=== PATIENT | male | born 1970 | race Caucasian/White ===

== ENCOUNTER 2022-01-30 13:15 | Outpatient (CLI) | payer BC, SELFPAY | END 2022-01-30 13:16 | disposition home or self-care (01) | PROVIDERS: PCP Family Medicine; Visit Provider Family Medicine | DX: Z00.00 Encounter for general adult medical examination without abnormal findings (principal); I49.9 Cardiac arrhythmia, unspecified; R60.9 Edema, unspecified; L57.8 Other skin changes due to chronic exposure to nonionizing radiation; R06.83 Snoring; F41.9 Anxiety disorder, unspecified | CPT/HCPCS: 80076; 84443 ==

== ENCOUNTER 2022-02-06 09:11 | Outpatient (CLI) | payer BC, SELFPAY | END 2022-02-06 09:12 | disposition home or self-care (01) | LOC: RAD 09:11 | PROVIDERS: PCP Family Medicine; Visit Provider Family Medicine | DX: I49.9 Cardiac arrhythmia, unspecified (principal); Z86.79 Personal history of other diseases of the circulatory system | CPT/HCPCS: 93306 ==

== ENCOUNTER 2022-03-11 19:36 | Outpatient (CLI) | payer BC, SELFPAY ==
--- NOTE | 2022-03-24 12:00 | W.PM.SLEEP ---
Sleep Study Details Details Interpreting Provider: Nadir Gaitan MD Date of Sleep Study: 04/11/22 Sleep Study Details: STUDY TYPE:? Home ? BMI:? 29.3 ORDERING PROVIDER:? Katie INDICATION:? Concerns about sleep apnea ? SLEEP SUMMARY:? Monitor time 460.4 minutes RESPIRATORY SUMMARY:? AHI overall 6.1, supine 9.1, left lateral 2.0, right lateral 4.7. Line oxygen saturation low was 89%, snore summary 9.9 PERIODIC LIMB MOVEMENTS OF SLEEP:? Not recorded CARDIAC:? 53-91, 63.4 beats per minute average IMPRESSION:? This study demonstrates mild obstructive sleep apnea with supine position dependency. Treatment options include CPAP auto set 4-17 versus a dental appliance. RECOMMENDATION: See above impression
== END 2022-03-11 19:37 | disposition home or self-care (01) ==
LOC: SLEEP 19:37
PROVIDERS: PCP Family Medicine; Visit Provider Family Medicine
DX: G47.33 Obstructive sleep apnea (adult) (pediatric) (principal)
CPT/HCPCS: 95806

== ENCOUNTER 2023-04-13 08:10 | Outpatient (CLI) | payer BC, SELFPAY | END 2023-04-13 08:11 | disposition home or self-care (01) | LOC: NFLDREF 04-14 07:59 | PROVIDERS: PCP Family Medicine; Referring Provider Family Medicine; Visit Provider Family Medicine | DX: Z00.00 Encounter for general adult medical examination without abnormal findings (principal); I10 Essential (primary) hypertension; Z12.5 Encounter for screening for malignant neoplasm of prostate; Z13.1 Encounter for screening for diabetes mellitus; Z13.6 Encounter for screening for cardiovascular disorders | CPT/HCPCS: 80048; 80061; 84153 ==

== ENCOUNTER 2024-08-08 08:45 | Outpatient (CLI) | payer BC, SELFPAY | END 2024-08-08 08:46 | disposition home or self-care (01) | PROVIDERS: PCP Family Medicine; Visit Provider Family Medicine | DX: I10 Essential (primary) hypertension (principal); Z13.220 Encounter for screening for lipoid disorders; Z12.5 Encounter for screening for malignant neoplasm of prostate; Z13.29 Encounter for screening for other suspected endocrine disorder | CPT/HCPCS: 80048; 80061; 84270; 84402; 84403; G0103 ==

== ENCOUNTER 2024-08-23 08:49 | Outpatient (CLI) | payer BC, SELFPAY | END 2024-08-23 08:50 | disposition home or self-care (01) | LOC: RAD 08:50 | PROVIDERS: PCP Family Medicine; Visit Provider Family Medicine | DX: I71.20 Thoracic aortic aneurysm, without rupture, unspecified (principal) | CPT/HCPCS: 93306 ==